=== PATIENT | female | born 1990 | race American Indian/Alaskan Native ===

== ENCOUNTER 2017-06-04 20:47 | Emergency (ER) | payer SELFPAY ==
[2017-06-04 22:11] LABS: Bilirubin,Urine NEG (Negative); Blood,Urine NEG (Negative); Ketones,Urine NEG (Negative); Leukocyte Esterase,Urine SM (Negative); Mucus,Urine 3+ /HPF; Nitrite,Urine NEG (Negative); Protein,Urine <15 mg/dL mg/dL (Negative); Urobilinogen,Urine < 2.0 mg/dL (<2.0)
[2017-06-04 22:30] LABS: Hematocrit 33.6 % (30.3-42.9); Hemoglobin 11.1 gm/dl (10.1-14.3); Mean Corpuscular HGB Conc 33 % (30-34); Mean Corpuscular Hemoglobin 29 pg (28-32); Mean Corpuscular Volume 89 fl (79-97); Platelet Count 271 K/mm3 (140-440); Red Blood Count 3.77 M/mm3 (3.65-5.03); Red Cell Distribution Width 14.7 % (13.2-15.2); White Blood Count 8.6 K/mm3 (4.5-11.0)
[2017-06-04 23:15] LABS: Anion Gap 21 mmol/L; Blood Urea Nitrogen 14 mg/dL (7-17); Calcium 9.5 mg/dL (8.4-10.2); Carbon Dioxide 20 mmol/L (22-30); Chloride 100.8 mmol/L (98-107); Glucose 73 mg/dL (65-100); Potassium 4.1 mmol/L (3.6-5.0); Sodium 138 mmol/L (137-145)
[2017-06-05] MEDS ORDERED: TYLENOL PO ONE (00:11)
--- NOTE | 2017-06-05 00:11 | Ultrasound Report ---
FINAL REPORT PROCEDURE: US OB \T\gt; = 14 WEEKS FETUS TECHNIQUE: Real-time transabdominal sonography of the uterus, placenta, amniotic fluid, adnexa, and fetus was performed with image documentation. Measurements were obtained to determine age/size. M-mode Doppler was used to document heartbeat. CPT 40432 HISTORY: positive home preg,severe pelvic pain COMPARISON: No prior studies are available for comparison. FINDINGS: ADDITIONAL GESTATION: None. GENERAL: IUP: Single living intrauterine . Position: Vertex Placental position: Posterior, without previa. Amniotic fluid volume: Normal. MATERNAL: Uterus: Within normal limits. Cervical length: 3.3 cm. Internal Os: Closed. FETUS: Heart rate and rhythm: 149 beats per minute anatomic survey: Normal. MEASUREMENTS: BPD: 4.6 centimeter HC: 17.6 centimeter AC: 15.8 centimeter FL: 3.9 centimeter Mean Gestational Age (composite criteria): 20 weeks 6 days Ratio biometry: Normal. Estimated Weight: 424 grams. Interval growth: No prior studies Estimated Due Date (earliest scan): 10/16/2017 IMPRESSION: Single intrauterine gestation at 20 weeks 6 days. Estimated due date: 10/16/2017. Normal survey.
--- NOTE | 2017-06-05 00:18 | Emergency Department Report ---
HPI - General Chief Complaint: Abdominal Pain Time Seen by Provider: 06/04/17 23:39 - HPI HPI: 26-year-old Afro-[place] female presents the emergency department with complaint of sharp intermittent cramping pelvic pains that been going on for the past 2 days. The patient says she is as she had a positive home test back in January and she says "I can feel the baby moving." She does not have an MACHINING MANAGER and is not taking vitamins and has had no care thus far. She is not taken anything for symptoms prior to presentation. She denies any dysuria, vaginal bleeding, vaginal discharge, fever. No recent travel or sick contacts at home. ED Past Medical Hx - Past Medical History Hx Hypertension: No Hx Congestive Heart Failure: No Hx Diabetes: No Hx Deep Vein Thrombosis: No Hx Renal Disease: No Hx Sickle Cell Disease: No Hx Seizures: No Hx Asthma: No Hx COPD: No Hx HIV: No Additional medical history: Fe deficiency - Social History Smoking Status: Never Smoker Substance Use Type: None - Medications Home Medications: Home Medications Medication Instructions Recorded Confirmed Last Taken Type Ibuprofen [Motrin 600 MG tab] 600 mg PO Q6H #40 tablet 08/08/16 Unknown Rx Vit W-Ca,Fe,FA(<1 mg) 1 each PO QDAY #30 tablet 06/05/17 Unknown Rx [ Vitamins] ED Review of Systems ROS: Stated complaint: ABD PAIN/ Other details as noted in HPI Comment: All other systems reviewed and negative Constitutional: denies: chills, fever Eyes: denies: eye pain, eye discharge, vision change ENT: denies: ear pain, throat pain Respiratory: denies: cough, shortness of breath, wheezing Cardiovascular: denies: chest pain, palpitations Gastrointestinal: abdominal pain. denies: nausea, vomiting Genitourinary: denies: urgency, dysuria, discharge Musculoskeletal: denies: back pain, joint swelling, arthralgia Skin: denies: rash, lesions Neurological: denies: headache, weakness, paresthesias Physical Exam - Physical Exam Vital Signs: Vital Signs 06/04/17 20:59 Temperature 98.2 F Pulse Rate 77 Respiratory 18 Rate Blood Pressure 109/71 O2 Sat by Pulse 100 Oximetry Physical Exam: GENERAL: The patient is well-developed well-nourished. HEENT: Normocephalic. Atraumatic. Extraocular motions are intact. Patient has moist mucous membranes. Pupils equal reactive to light bilaterally. NECK: Supple. Trachea is midline. CHEST/LUNGS: Clear to auscultation. There is no respiratory distress noted. HEART/CARDIOVASCULAR: Regular. There is no tachycardia. There is no gallop rub or murmur. ABDOMEN: Abdomen is soft. No tenderness to palpation. Gravid uterus palpable about the umbilicus. Patient has normal bowel sounds. There is no abdominal distention. SKIN: Skin is warm and dry. NEURO: The patient is awake, alert, and oriented. The patient is cooperative. The patient has no focal neurologic deficits. The patient has normal speech. MUSCULOSKELETAL: There is no tenderness or deformity. There is no limitation range of motion. There is no evidence of acute injury. ED Course Vital Signs 06/04/17 20:59 Temperature 98.2 F Pulse Rate 77 Respiratory 18 Rate Blood Pressure 109/71 O2 Sat by Pulse 100 Oximetry ED Medical Decision Making - Lab Data Result diagrams: 06/04/17 21:05 06/04/17 21:05 - Radiology Data Radiology results: report reviewed ultrasound shows a live intrauterine at about 20 weeks. - Medical Decision Making 26-year-old female presents with occasional sharp cramping pelvic pains while . Ultrasound confirms intrauterine at about 20 weeks. Labs are unremarkable. Vital signs stable. She'll be discharged home with vitamins and referrals for MACHINING MANAGER. She will return to the ER with any vaginal bleeding, worsening of her symptoms, or any acute distress. - Differential Diagnosis , threatened miscarriage, spontaneous miscarriage, fibroids, ovari Critical Care Time: No Critical care attestation.: If time is entered above; I have spent that time in minutes in the direct care of this critically ill patient, excluding procedure time. ED Disposition Clinical Impression: Pelvic pain Qualifiers: Weeks of gestation: 20 weeks Qualified Code(s): Z3A.20 - 20 weeks gestation of Disposition: -01 TO HOME OR SELFCARE Is pt being admited?: No Condition: Stable Instructions: Abdominal Pain (ED), (ED) Additional Instructions: Please follow-up with an MACHINING MANAGER in the next few days. Return to the emergency department with any worsening of your symptoms or any acute distress. Prescriptions: Vit W-Ca,Fe,FA(<1 mg) [ Vitamins] 1 each PO QDAY #30 tablet Referrals: PRIMARY CARE, [Primary Care Provider] - 3-5 Days [facility] [Provider Group] - 3-5 Days [facility] [Provider Group] - 3-5 Days [facility] [Provider Group] - 3-5 Days Time of Disposition: 00:29
[2017-06-05 00:45] VITALS: BP 122/72
== END 2017-06-05 00:41 | disposition home or self-care (01) ==
LOC: ED 20:47
DX: O26.892 Other specified pregnancy related conditions, second trimester (principal); R10.2 Pelvic and perineal pain; Z3A.20 20 weeks gestation of pregnancy
CPT/HCPCS: 36415; 76805; 80048; 81001; 85027; 86900; 86901